=== PATIENT | female | born 1985 | race Caucasian/White ===

== ENCOUNTER 2016-05-10 20:51 | Emergency (ER) | payer SELFPAY ==
[~2016-05-10] VITALS: Ht 157.5 cm; Wt 49.5 kg
[~2016-05-10 20:51] MED LIST: IBUP-1542 PO; LIDO20SO19 MM; METO10TA92 PO
[2016-05-10 21:10] VITALS: Ht 157.5 cm; Wt 49.5 kg
== END 2016-05-10 21:31 | disposition left against medical advice (07) ==
LOC: FTE 20:51
DX: Z53.21 Procedure and treatment not carried out due to patient leaving prior to being seen by health care provider (principal)

== ENCOUNTER 2016-09-17 11:50 | Inpatient (IN) | payer OTHER ==
[~2016-09-17] VITALS: Ht 157.5 cm; Wt 59.4 kg
[2016-09-17 12:05] VITALS: BP 110/59; PULSE 96; RESP 16; Ht 157.5 cm; Wt 59.4 kg
[2016-09-17 12:31] LABS: URINE BLOOD (Dip) POC Negative (NEGATIVE)
[2016-09-17] MEDS ORDERED: ONDANSETRON 4 MG INJ IV PRN (13:00)
[2016-09-17] MEDS ORDERED: AL HYDROX/MG HYDROX/SIMETH 30 ML CUP PO PRN (13:00)
[2016-09-17] MEDS: LACTATED RINGER'S 1,000 ML IV SCH ×2 (13:11→17:55)
[2016-09-17 13:48] LABS: ADD SCAN DIFF NO
[2016-09-17] MEDS ORDERED: FOLI-49 PO (13:52)
[2016-09-17] MEDS ORDERED: PRENAT PO (13:52)
[2016-09-17 13:57] LABS: BASOPHILS % 0.2 % (0.0-2.0); EOSINOPHILS # 0.1 10^3/ul (0.0-0.5); HEMATOCRIT 35.4 % (37.0-47.0); HEMOGLOBIN 11.7 g/dl (12.0-16.0); LYMPHOCYTES # 1.3 10^3/ul (0.8-2.9); LYMPHOCYTES % 13.6 % (15.0-51.0); MEAN CORPUSCULAR HEMOGLOBIN 30.8 pg (29.0-33.0); MEAN CORPUSCULAR HGB CONC 33.1 g/dl (32.0-37.0); MEAN CORPUSCULAR VOLUME 93.2 fl (82.0-101.0); MEAN PLATELET VOLUME 10.7 fl (7.4-10.4); MONOCYTE # 0.8 10^3/ul (0.3-0.9); MONOCYTES % 7.9 % (0.0-11.0); NEUTROPHIL # 7.3 10^3/ul (1.6-7.5); NEUTROPHILS % 76.2 % (39.0-77.0); PLATELET COUNT 211 10^3/UL (140-415); WHITE BLOOD COUNT 9.6 10^3/ul (4.8-10.8)
[2016-09-17 13:57] LABS: ADD UMIC NO; URINE BILIRUBIN (Dip) NEGATIVE (NEGATIVE); URINE BLOOD (Dip) NEGATIVE (NEGATIVE); URINE COLOR LT. YELLOW (YELLOW); URINE GLUCOSE (Dip) NEGATIVE (NEGATIVE); URINE KETONES (Dip) NEGATIVE (NEGATIVE); URINE LEUKOCYTE ESTERASE (Dip) NEGATIVE (NEGATIVE); URINE NITRITE (Dip) NEGATIVE (NEGATIVE); URINE TOTAL PROTEIN (Dip) NEGATIVE (NEGATIVE); URINE UROBILINOGEN (Dip) 0.2 E.U./dL (0.1-1.0)
[2016-09-17 14:13] LABS: INR 1.01; PARTIAL THROMBOPLASTIN TIME 26.3 Sec (25.0-35.0); PROTIME 13.3 Sec (12.2-14.2)
[2016-09-17 14:16] LABS: ALBUMIN 3.1 g/dl (3.3-4.9); ALBUMIN/GLOBULIN RATIO 0.96; BILIRUBIN,INDIRECT 0.6 mg/dl (0-1.1); BILIRUBIN,TOTAL 0.6 mg/dl (0.2-1.3); CALCIUM 8.3 mg/dl (8.4-10.2); CREATININE 0.38 mg/dl (0.44-1.00); PHOSPHORUS 3.9 mg/dl (2.5-4.9); POTASSIUM 3.8 mmol/L (3.5-5.1); TOTAL PROTEIN 6.3 g/dl (6.1-8.1)
[2016-09-17 14:17] LABS: BARBITURATES Negative (NEGATIVE); BENZODIAZEPINES Negative (NEGATIVE)
[2016-09-17 14:35] LABS: CANNABINOIDS Negative (NEGATIVE); COCAINE Negative (NEGATIVE); OPIATES Negative (NEGATIVE)
[2016-09-17] MEDS: ACETAMINOPHEN 325 MG TAB PO PRN (14:36)
[2016-09-17] MEDS: BETAMET NA PHOS/AC(6 MG/ML) 5ML INJ IM SCH (14:36)
--- NOTE | 2016-09-17 14:50 | RADRPT ---
PROCEDURE: US OB. CLINICAL INDICATION: induced hypertension, labor TECHNIQUE: Multiple sonographic images of the pelvis were obtained. The images were reviewed on a PACS workstation. COMPARISON: No prior studies are available for comparison. FINDINGS: The cervix is closed with a length of 4.33 cm. There is a single viable intrauterine gestation. Cardiac activity is present with 156 beats per min [place]. There is a vertex presentation. Measurements were made in order to determine age. The results are as follows: BPD = 7.65 cm HC = 28.11 cm AC = 26.03 cm FL = 5.7 cm. Estimated gestational age of approximately 30 weeks 3 days. The estimated date of delivery is November 23, 2016. The EFW = 1527 g plus or minus 229 g or 3 pounds 6 ounces. This is in the 29.3 percentile . No anatomic abnormality is visualized. The placenta is right lateral, grade II to III. There is no evidence for an abruption or placenta pr evia. There is a normal amount of amniotic fluid with an NAFISA = 9.81 cm in 4 quadrants. The biophysical profile score is 8/8. There are no adnexal masses. IMPRESSION: Single viable intrauterine gestation of approximately 30 weeks 3 days. The estimated date of delive ry is November 23, 2016. No acute abnormality visualized. The estimated weight is in the 29.3 p ercentile . RPTAT: EE .Lupis Miller MD, MD Date Time Electronically viewed and signed by .Lupis Miller MD, MD on 09/17/2016 14:49 .F/
[2016-09-17 14:52] LABS: FIBRIN SPLIT PRODUCT <10 ug/ml (<10)
--- NOTE | 2016-09-17 14:53 | RADRPT ---
PROCEDURE: US OB. CLINICAL INDICATION: labor, induced hypertension TECHNIQUE: Transabdominal OB views of the pelvis are available for review. COMPARISON: Complete OB ultrasound from the same day FINDINGS: Within the uterus, there is a single, live intrauterine . The presentation is cephalic. Th e heart rate is 156 beats per minute. The amniotic fluid index in four quadrants is 9.81 cm. The placenta is noted to be right lateral and grade 2-3. There are no findings of abruption or previ a. The biophysical profile score is 8/8. IMPRESSION: 1. Single live intrauterine with an amniotic fluid index of 9.81 cm. The biophysical pro file score is 8/8. 2. The placenta is right lateral and grade 2-3. There are no findings of abruption or previa. RPTAT: QQ .Lupis Miller MD, Date Time Electronically viewed and signed by .Lupis Miller MD, on 09/17/2016 14:52 .F/
--- NOTE | 2016-09-17 18:05 | QN ---
Documentation Comment iup 30 weeks here for repeat BMS course no complaints vss exam wnl a/p iup 30 weeks false labor [facility] DAISHA DE JESUS MD September 17, 2016 18:05
[2016-09-18] MEDS: LACTATED RINGER'S 1,000 ML IV SCH ×3 (01:42→17:29)
[2016-09-18] MEDS ORDERED: DOCUSATE SODIUM 100 MG CAP PO SCH (09:00)
[2016-09-18] MEDS ORDERED: MULTIVIT/MIN/FOLATE/IRON/PREN TAB PO SCH (09:00)
[2016-09-18] MEDS: ACETAMINOPHEN 325 MG TAB PO PRN (09:01)
--- NOTE | 2016-09-18 12:41 | PN ---
Date/Time of Note Date/Time of Note DATE: 09/18/16 TIME: 12:33 OB Subjective Subjective Subjective 30 weeks 4/7 days history of previous admitted to the hospital for lower abdominal pain, today he says her pain is much better and she has only slight discomfort. Since she has a history of PIH in the past pregnancies 24 hours urine collection for protein requested result not available yet patient's blood pressure has been within normal when I saw her blood pressure was 105/ 70 no complaint of headache blurry vision or epigastric pain plan pending 24 hours urine collection for protein. SELVIN HINES MD September 18, 2016 12:41
[2016-09-18] MEDS: BETAMET NA PHOS/AC(6 MG/ML) 5ML INJ IM SCH (13:09)
[2016-09-18 15:31] LABS: SCRET 0.38 mg/dl (0.44-1.00)
--- NOTE | 2016-09-18 18:01 | DS ---
Date/Time of Note Date/Time of Note DATE: 09/18/16 TIME: 17:59 Obstetrical Discharge Record Final Diagnosis Final Diagnosis: not delivered Other Final Diagnosis 30+4 weeks of gestation rule out PIH Status post betamethasone 2 doses Blood pressure within normal limits 24 hour urine protein collection within normal limits Patient instructed to follow-up with her clinic in 2-3 days Condition on Discharge Physical Assessment Last Vitals: Blood pressure within normal limits Voiding: Yes Bowel Movement: Yes Calf Tenderness: No Patient Condition: Good ALMITA SHERIFF MD September 18, 2016 18:01
== END 2016-09-18 18:20 | disposition home or self-care (01) | DRG 778 ==
LOC: OBT 11:50 → L-D 11:51 → OBT 13:00 → OBG 13:00
PROVIDERS: ADMIT Obstetrics & Gynecology; ATTEND Obstetrics & Gynecology
DX: O60.03 Preterm labor without delivery, third trimester (principal); O34.219 Maternal care for unspecified type scar from previous cesarean delivery; O13.3 Gestational [pregnancy-induced] hypertension without significant proteinuria, third trimester; Z3A.30 30 weeks gestation of pregnancy
CPT/HCPCS: 36415; 76815; 76817; 76818; 80053; 80069; 80076; 80307; 81003; 82575; 83615; 84156; 84560; 85025; 85362; 85384; 85610; 85730; 86592; 86850; 86900; 86901; 87086; 96360; 96372; G0463; J0702; J7120

== ENCOUNTER 2016-10-04 14:18 | Emergency (ER) | payer OTHER ==
[~2016-10-04] VITALS: Ht 160 cm; Wt 59.5 kg
[~2016-10-04 14:18] MED LIST changes: +FOLI-49 PO; -IBUP-1542 PO; -LIDO20SO19 MM; -METO10TA92 PO; +PRENAT PO
[2016-10-04 14:33] VITALS: Ht 160 cm; Wt 59.5 kg
[2016-10-04] MEDS ORDERED: DEBROX RIGHT EAR (14:37)
--- NOTE | 2016-10-04 14:44 | ERD ---
ER Documentation Chief Complaint Date/Time DATE: 10/04/16 TIME: 14:42 Chief Complaint right ear pain x 1 week HPI 31-year-old female comes in with right ear muscle weakness, pressure-like pain for the past 5 days. Patient states that it is localized to the inner right ear , she tried cleaning her ear but was not able to get anything out. She denies any discharge, drainage, fevers or chills. No recent swimming. She states that she is currently 38 2 weeks , denies pelvic pain, vaginal bleeding , dizziness, chest pain or shortness of breath. Patient reports positive movement. ROS All systems reviewed and are negative except as per history of present illness. Medications Home Meds Active Scripts Carbamide Peroxide* (Debrox*) 6.5% -15 Ml Drops, 10 DROP RIGHT EAR BID, #1 EA Prov:LESLEY MARTINEZ PA-C 10/04/16 Reported Medications Folic Acid* (Folic Acid*) 1 Mg Tablet, 1 MG PO DAILY, TAB 09/17/16 Multivit/Min/Fol Ac/Iron/Pren* ( S*) 1 Tab Tab, 1 TAB PO DAILY, TAB 09/17/16 Allergies Allergies: Coded Allergies: No Known Allergy (Unverified , 09/17/16) PMhx/Soc Hx Alcohol Use: No Hx Substance Use: No Hx Tobacco Use: No Physical Exam Vitals Vital Signs Date Time Temp Pulse Resp B/P Pulse Ox O2 Delivery O2 Flow Rate FiO2 10/04/16 14:33 98.9 96 18 104/74 97 Physical Exam General: Well-developed, well-nourished. The patient appears in no acute distress. HEENT: Head is normocephalic, atraumatic. No scleral icterus. Right ear has cerumen impaction, no pain with manipulation of the ear. Oropharynx is clear. Left ear normal. Neck: Supple. Nontender. Lungs: Clear to auscultation. Normal air movement. Heart: Regular rate and rhythm. S1 and S2 are normal. No murmurs, gallops, or rubs. Abdomen: Nondistended. Appropriate fundal height. Extremities: No clubbing or cyanosis. Moving extremities x 4. No weakness. Neurologic: Alert and oriented 3. No focal deficits. Normal speech and gait. Skin: Normal turgor. No rash or lesions. Procedures/MDM 31-year-old female comes in with impaction of cerumen of the right ear. No evidence of orbital cellulitis, facial cellulitis, mastoiditis, otitis externa. Patient is currently , does not have any obstetric complaints, including pelvic pain or vaginal bleeding. Vitals were reviewed, stable will be discharged home with eardrops. Departure Diagnosis: Primary Impression: Impacted cerumen of right ear Condition: Good Patient Instructions: Cerumen Impaction, Home Care Additional Instructions: Call your primary care doctor TOMORROW for an appointment during the next 1-2 days.See the doctor sooner or return here if your condition worsens before your appointment time. LESLEY MARTINEZ PA-C Oct 04, 2016 14:44
== END 2016-10-04 17:07 | disposition home or self-care (01) ==
LOC: E/R 14:18
DX: O99.89 Other specified diseases and conditions complicating pregnancy, childbirth and the puerperium (principal); H61.21 Impacted cerumen, right ear; H92.01 Otalgia, right ear; Z3A.38 38 weeks gestation of pregnancy
CPT/HCPCS: 99283

== ENCOUNTER 2016-11-17 04:56 | Inpatient (IN) | payer OTHER ==
[~2016-11-17] VITALS: Ht 154.9 cm; Wt 64.9 kg
[~2016-11-17 04:56] MED LIST changes: +DEBROX RIGHT EAR
[2016-11-17 05:21] VITALS: Ht 154.9 cm; Wt 64.9 kg
[2016-11-17] MEDS ORDERED: LACTATED RINGER'S 1,000 ML IV SCH (05:23)
[2016-11-17] MEDS ORDERED: CARBOPROST 250 MCG INJ IM PRN ×2 (05:30→12:00)
[2016-11-17] MEDS ORDERED: METHYLERGONOVINE 0.2 MG INJ IM PRN ×2 (05:30→12:00)
[2016-11-17] MEDS ORDERED: MISOPROSTOL 200 MCG TAB PR PRN ×2 (05:30→12:00)
[2016-11-17] MEDS ORDERED: CEFAZOLIN 2 GM/50 ML (PMX) 50 ML IV SCH (05:30)
[2016-11-17] MEDS ORDERED: OXYTOCIN 30 UNITS/LR 500 ML IV SCH (05:30)
[2016-11-17] MEDS ORDERED: OXYTOCIN 30 UNITS/LR 500 ML IV PRN ×2 (05:30→12:00)
[2016-11-17 06:21] LABS: BASOPHILS % 0.2 % (0.0-2.0); EOSINOPHILS # 0.1 10^3/ul (0.0-0.5); HEMATOCRIT 36.1 % (37.0-47.0); HEMOGLOBIN 12.4 g/dl (12.0-16.0); LYMPHOCYTES # 2.5 10^3/ul (0.8-2.9); LYMPHOCYTES % 25.7 % (15.0-51.0); MEAN CORPUSCULAR HEMOGLOBIN 30.5 pg (29.0-33.0); MEAN CORPUSCULAR HGB CONC 34.3 g/dl (32.0-37.0); MEAN CORPUSCULAR VOLUME 88.7 fl (82.0-101.0); MONOCYTE # 0.7 10^3/ul (0.3-0.9); MONOCYTES % 7.6 % (0.0-11.0); NEUTROPHIL # 6.2 10^3/ul (1.6-7.5); NEUTROPHILS % 65.2 % (39.0-77.0); PLATELET COUNT 198 10^3/UL (140-415); RED BLOOD COUNT 4.07 10^6/ul (4.20-5.40); RED CELL DISTRIBUTION WIDTH 12.4 % (11.5-14.5); WHITE BLOOD COUNT 9.6 10^3/ul (4.8-10.8)
[2016-11-17 06:43] LABS: INR 0.97; PROTIME 12.9 Sec (12.2-14.2)
[2016-11-17 06:44] LABS: PARTIAL THROMBOPLASTIN TIME 27.2 Sec (25.0-35.0)
[2016-11-17] MEDS ORDERED: PHENYLephrine (100 MCG/ML) 5ML SYG ONE (07:40)
[2016-11-17] MEDS ORDERED: EPHEDrine SULFATE 50 MG/5 ML SYG ONE (07:40)
[2016-11-17] MEDS ORDERED: ONDANSETRON 4 MG INJ ONE (07:40)
[2016-11-17] MEDS ORDERED: DEXAMETHASONE 4 MG/ML 1 ML INJ ONE (07:40)
[2016-11-17] MEDS ORDERED: morphine SULFATE/PF (10 MG/10 ML) INJ ONE (07:40)
[2016-11-17] MEDS ORDERED: FENTAnyl 50 MCG/ML VIAL ONE (07:40)
[2016-11-17] MEDS ORDERED: NALOXONE (0.4 MG/ML) INJ IV PRN (09:00)
[2016-11-17] MEDS ORDERED: ONDANSETRON 4 MG INJ IV PRN (09:00)
[2016-11-17] MEDS ORDERED: HYDROmorphONE 1 MG/ML SYG IV PRN ×2 (09:00)
[2016-11-17] MEDS ORDERED: DIPHENHYDRAMINE 50 MG INJ IV PRN (09:00)
[2016-11-17] MEDS ORDERED: ZOLPIDEM 5 MG TAB PO PRN (09:00)
[2016-11-17] MEDS ORDERED: NALBUPHINE HCL (10 MG/1 ML) INJ IV PRN (09:00)
--- NOTE | 2016-11-17 09:23 | HP ---
Date/Time of Note Date/Time of Note DATE: 11/17/16 TIME: 09:14 OB - History Hx of Present Free Text/Dictation 30 years old female PC 1 EDC November 23, 2016 history of previous C- section admitted to 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12 history of 1 previous with section no other surgery or hospital admission according to her Allergies denies allergy to any known Social habit denies a smoking or drinking Review of system within normal Physical examination 5 feet 1 143 pound Temperature 98.1 pulse 72 respiration 18 blood pressure 128/88 Head ears nose and throat negative Neck supple no thyromegaly Lungs clear to P&A Heart normal sinus rhythm no murmur Breasts no abnormal palpable mass no nipple retraction or discharge no axillary adenopathy no supraclavicular adenopathy, Abdomen fundal height 36 cm from symphysis pubis scar of the previous heart rate category 1 Pelvic examination deferred Extremities no edema no varicosities Impression Intrauterine at 39 weeks gestation history of previous patient undergoing a repeat has been counseled regarding complication of the surgery including but not limited bowel bladder injury wound infection and hematoma and she is willing to go ahead with this procedure Estimated Due Date: Nov 23, 2016 : 2 Para: 1 Care: Limited Care Ultrasounds: Normal mid trimester US Obstetrical Complications: None Past Family/Social History * Past Medical, Surgical, Family and Obstetric Histories reviewed from chart. Rubella: immune RPR/VDRL: Negative GBS Status: Negative HBsAG: Negative OB Admission Exam Physical Exam Heart: Rhythm Normal Lungs: Clear, Equal Abdomen: WNL Reflexes: Normal Cervical Dilatation: None Accelerations: Accelerations Present Decelerations: No Decelerations Varibility: Moderate Contractions on Admission: >10 Minutes Apart Intensity: Mild Last 72 hours Lab Results CBC & BMP 11/17/16 05:50 SELVIN HINES MD Nov 17, 2016 09:23
--- NOTE | 2016-11-17 09:32 | OPR ---
Operative Report Planned Procedure Free Text/Dictation 39 weeks history of previous Procedure date Nov 17, 2016 Procedure(s) Repeat section Performed by: SELVIN HINES MD Assisting provider: DAISHA DE JESUS MD Anesthesiologist: KIRIT COLEMAN DO Pre-procedure diagnosis 39 weeks history of previous Anesthesia Type: spinal Procedure Description Under satisfactory spinal anesthesia, the patient was prepped and draped and placed in a supine position, tilted to the left. Pfannenstiel incision was made , carried through the subcutaneous tissue old scar was removed. Bleeders brought under control with electrocautery. Fascia incised to the length of the incision. Rectus muscles from the fascia, divided midline. Peritoneum exposed, entered through a transverse incision. Exploration of abdomen revealed gravid uterus normal-appearing tubes and ovaries. Bladder flap was developed. Transverse incision was made in the lower segment of the uterus. Amniotic sac ruptured. [Clear] amniotic fluid noted. Light baby girl was delivered from unengaged vertex [] Nasal oropharyngeal suction was performed. baby handed to the team for immediate attention. Patient received 20 units of Pitocin placenta was delivered manually intact. Uterine cavity was cleaned with wet sponge and drainage established. Uterus closed in 2 layers using [ Monocryl #1] in continuous fashion. Peritoneal cavity irrigated with warm saline. Sponge, needle and instrument count reported to be correct. Abdominal peritoneum closed with 2-0 chromic catgut [] continuously. Rectus muscle approximated with [interrupted 2-0 chromic catgut]. Fascia closed with #1 PDS [] , cutaneous tissue approximated with 2 interrupted 2-0 chromic catgut , skin closed with albina. Estimated blood loss [600]mL. Urine bag contained 200 []mL of clear urine patient tolerated procedure well transferred to recovery room in good condition Post-Procedure Findings: Live Baby girl [], Apgars [8] and [9], Complications: None Pt Condition post procedure: stable Disposition: other () Physician Certification I, the undersigned physician, hereby certify that I have discussed the procedure described in this consent form with this patient (or the patient's legal cash posting representative), including: * The risk and benefits of the procedure; * Any adverse reactions that may reasonably be expected to occur; * Any alternative efficacious methods of treatment which may be medically viable ; * The potential problems that may occur during recuperation; * Potential for blood transfusion and associated risks/benefits; and * Any research or economic interest I may have regarding this treatment. I further certify that the patient/legally responsible person was encouraged to ask question and that all questions were answered. SELVIN HINES MD Nov 17, 2016 09:32
[2016-11-17] MEDS: KETOROLAC 30 MG INJ IV PRN ×2 (10:07→16:29)
[2016-11-17 11:20] VITALS: BP 114/68; PULSE 70; RESP 19
[2016-11-17 12:00] VITALS: BP 133/76; PULSE 67; RESP 18
[2016-11-17] MEDS ORDERED: LANOLIN 7 GM TUBE TOP PRN (12:00)
[2016-11-17] MEDS ORDERED: ACETAMINOPHEN/CODEINE #3 TAB PO PRN ×2 (12:00)
[2016-11-17] MEDS ORDERED: CEFAZOLIN 1 GM/50 ML (PMX) 50 ML IVPB SCH (12:00)
[2016-11-17] MEDS: IBUPROFEN 600 MG TAB PO SCH ×2 (12:00→18:00)
[2016-11-17] MEDS ORDERED: OXYCODONE/ACETAMINOPHEN (5/325) TAB PO PRN (12:00)
[2016-11-17] MEDS: OXYTOCIN 30 UNITS/LR 500 ML IV SCH ×3 (15:11→20:06)
[2016-11-17 16:30] VITALS: BP 119/68; PULSE 65; RESP 19
[2016-11-17 19:35] VITALS: BP 119/79; PULSE 78; RESP 19
[2016-11-17] MEDS: SENNA/DOCUSATE NA (8.6MG/50MG) TAB PO SCH (20:06)
[2016-11-18 00:20] VITALS: BP 117/69; PULSE 67; RESP 19
[2016-11-18] MEDS: OXYTOCIN 30 UNITS/LR 500 ML IV SCH ×4 (00:55→11:47)
[2016-11-18] MEDS: LACTATED RINGER'S 1,000 ML IV SCH ×2 (00:55→08:10)
[2016-11-18] MEDS: KETOROLAC 30 MG INJ IV PRN ×2 (03:17→08:55)
[2016-11-18 04:02] VITALS: BP 119/72; PULSE 72; RESP 18
[2016-11-18] MEDS: IBUPROFEN 600 MG TAB PO SCH ×3 (06:00→17:54)
[2016-11-18 07:16] LABS: BASOPHILS % 0.2 % (0.0-2.0); EOSINOPHILS % 0.2 % (0.0-7.0); HEMATOCRIT 29.6 % (37.0-47.0); HEMOGLOBIN 10.1 g/dl (12.0-16.0); LYMPHOCYTES # 2.5 10^3/ul (0.8-2.9); LYMPHOCYTES % 19.2 % (15.0-51.0); MEAN CORPUSCULAR HEMOGLOBIN 30.2 pg (29.0-33.0); MEAN CORPUSCULAR HGB CONC 34.1 g/dl (32.0-37.0); MEAN CORPUSCULAR VOLUME 88.6 fl (82.0-101.0); MONOCYTES % 7.5 % (0.0-11.0); NEUTROPHIL # 9.2 10^3/ul (1.6-7.5); NEUTROPHILS % 72.3 % (39.0-77.0); PLATELET COUNT 186 10^3/UL (140-415); RED BLOOD COUNT 3.34 10^6/ul (4.20-5.40); RED CELL DISTRIBUTION WIDTH 12.4 % (11.5-14.5); WHITE BLOOD COUNT 12.8 10^3/ul (4.8-10.8)
[2016-11-18 08:10] VITALS: BP 125/69; PULSE 67; RESP 16
[2016-11-18] MEDS: SENNA/DOCUSATE NA (8.6MG/50MG) TAB PO SCH ×2 (08:54→21:23)
--- NOTE | 2016-11-18 10:13 | PN ---
Date/Time of Note Date/Time of Note DATE: 11/18/16 TIME: 10:12 OB Subjective Subjective Subjective Repeat day 1 Afebrile Vital signs are stable Abdomen soft bowel sounds present Lochia moderate Incision dry Extremities negative, ambulation encouraged SELVIN HINES MD Nov 18, 2016 10:13
[2016-11-18] MEDS: OXYCODONE/ACETAMINOPHEN (5/325) TAB PO PRN ×2 (13:32→17:56)
[2016-11-18 16:00] VITALS: BP 120/69; PULSE 70; RESP 18
[2016-11-18 20:05] VITALS: BP 132/72; PULSE 68; RESP 18
[2016-11-19] MEDS: IBUPROFEN 600 MG TAB PO SCH ×5 (00:26→23:19)
[2016-11-19 04:00] VITALS: BP 130/70; PULSE 78; RESP 18
[2016-11-19 08:15] VITALS: BP 134/93; PULSE 86; RESP 19
[2016-11-19] MEDS: SENNA/DOCUSATE NA (8.6MG/50MG) TAB PO SCH ×2 (08:27→21:53)
[2016-11-19] MEDS: OXYCODONE/ACETAMINOPHEN (5/325) TAB PO PRN ×2 (08:27→16:54)
--- NOTE | 2016-11-19 08:42 | PN ---
Date/Time of Note Date/Time of Note DATE: 11/19/16 TIME: 08:41 OB Subjective Subjective Subjective Post day 2 Afebrile Vital signs are stable Abdomen soft bowel sounds present no bowel movement extremities negative Enema recommended SELVIN HINES MD Nov 19, 2016 08:41
[2016-11-19] MEDS ORDERED: NA PHOSPHATE/BIPHOS 133 ML ENEMA PR ONE (09:00)
[2016-11-19 16:00] VITALS: BP 124/90; PULSE 68; RESP 19
[2016-11-19 20:00] VITALS: BP 129/96; PULSE 78; RESP 18
[2016-11-20] MEDS: OXYCODONE/ACETAMINOPHEN (5/325) TAB PO PRN ×2 (00:08→08:44)
[2016-11-20 04:02] VITALS: BP 127/64; PULSE 76; RESP 20
[2016-11-20] MEDS: IBUPROFEN 600 MG TAB PO SCH ×2 (05:22→13:22)
[2016-11-20 07:30] VITALS: BP 127/95; PULSE 75; RESP 16
[2016-11-20] MEDS: SENNA/DOCUSATE NA (8.6MG/50MG) TAB PO SCH (08:44)
[2016-11-20] MEDS ORDERED: DIPHTH/TET/ACEL PERTUSS (ADULT) 0.5 ML VIAL IM* ONE (09:00)
--- NOTE | 2016-11-20 10:06 | PD.PPDC ---
POTTERY DECORATOR Discharge Instruction Condition Patient Condition: Good Diet Diet: Resume Regular Diet Activity/Restrictions Activity: Normal Activity May Shower Wound/Drain Care Instructions Wound/Drain Care Instructions: Remove Steri Strips in 1 week Follow-up Follow-up with Physician: 4, Day/Days Provider Information: Appointment clinic in 4 days to discontinue albina patient received instructions for home care of wound Return to clinic for SKI TOPPER Instructions: Fever greater than 101 Chills Worsening abdominal pain Excessive Vaginal Bleeding More than 2 pads per hour Unable to tolerate diet OB Instructions: Breast Tenderness Depression Blurried Vision Headache Surgical Instructions: Incisional Drainage Incisional Redness SELVIN HINES MD Nov 20, 2016 10:06
--- NOTE | 2016-11-20 10:09 | DS ---
Date/Time of Note Date/Time of Note DATE: 11/20/16 TIME: 10:08 Discharge Summary Admission/Discharge Info Admit Date/Time Nov 17, 2016 at 04:56 Discharge Date/Time November 20, 2016 at 10 AM Discharge Diagnosis Date 3 post repeat Patient Condition: Good Procedures Repeat Hx of Present Illness 39 weeks history of previous Hospital Course Satisfactory recovery Home Meds Active Scripts Carbamide Peroxide* (Debrox*) 6.5% -15 Ml Drops, 10 DROP RIGHT EAR BID, #1 EA Prov:LESLEY MARTINEZ PASamantha 10/04/16 Reported Medications Folic Acid* (Folic Acid*) 1 Mg Tablet, 1 MG PO DAILY, TAB 09/17/16 Multivit/Min/Fol Ac/Iron/Pren* ( S*) 1 Tab Tab, 1 TAB PO DAILY, TAB 09/17/16 Follow-up Plan Post instructions given advised to make appointment in 4 days to discontinue albina Primary Care Provider William Golden Time spent on discharge: < 30 minutes SELVIN HINES MD Nov 20, 2016 10:09
== END 2016-11-20 14:10 | disposition home or self-care (01) | DRG 766 ==
LOC: L-D 04:56 → PP1 11:25
PROVIDERS: ADMIT Obstetrics & Gynecology; ATTEND Obstetrics & Gynecology
PROC: 3E033VJ Introduction of Other Hormone into Peripheral Vein, Percutaneous Approach (ICD-10-PCS; 2016-11-17)
PROC: 10D00Z1 Extraction of Products of Conception, Low, Open Approach (ICD-10-PCS; principal; 2016-11-17 07:30)
DX: O34.211 Maternal care for low transverse scar from previous cesarean delivery (principal); Z37.0 Single live birth; Z3A.39 39 weeks gestation of pregnancy
CPT/HCPCS: 85025; 85610; 85730; 86592; 86850; 86900; 86901; 87340; 90715; 94760; 99464; J0690; J1100; J1885; J2274; J2370; J2405; J2590; J3010; J7120

== ENCOUNTER 2017-03-22 12:57 | Emergency (ER) | payer OTHER ==
[~2017-03-22] VITALS: Wt 57.7 kg
[~2017-03-22 12:57] MED LIST changes: +CARB-155 RIGHT EAR; -DEBROX RIGHT EAR
[2017-03-22] MEDS ORDERED: BACITUD TOP (14:41)
[2017-03-22] MEDS ORDERED: CLOT30CR24 TOP (14:41)
[2017-03-22] MEDS ORDERED: CEPH-443 PO (14:41)
[2017-03-22] MEDS ORDERED: ACET500C5 PO (14:42)
--- NOTE | 2017-03-22 23:48 | ERD ---
ER Documentation Chief Complaint Chief Complaint LEFT BREAST PAIN, ONSET SEVERAL WEEKS NOW, PT IS HPI 31-year-old female patient with no significant past medical history presents to the ED complaining of a gradual onset of left breast pain that occurred a few weeks ago while breast-feeding. Reports that she has not been breast-feeding with her left breast due to the pain and it feels engorged. Reports that she has been breast-feeding her 4-month-old and she started to get cuts on her nipple. Denies any fever, chills, nausea, vomiting, chest pain, shortness of breath, shortness of breath, rashes, increased redness or warmth of skin. ROS All systems reviewed and are negative except as per history of present illness. Medications Home Meds Active Scripts Acetaminophen* (Tylophen*) 500 Mg Capsule, 1 CAP PO Q6H Y for PAIN AND OR ELEVATED TEMP, #20 CAP Prov:HEMANT BARTH PA-C 03/22/17 Clotrimazole* (Clotrimazole* AF) 1% - 30 Gm Cream.gm., 1 APPLIC TOP BID for 7 Days, TUB Prov:HEMANT BARTH PA-C 03/22/17 Bacitracin* (Bacitracin Oint (UD)*) 1 Applic Oint, 1 APPLIC TOP ONCE, #14 PKT APPLY TO Prov:HEMANT BARTH PA-C 03/22/17 Cephalexin* (Keflex*) 500 Mg Capsule, 500 MG PO QID for 7 Days, CAP Prov:HEMANT BARTH PA-C 03/22/17 Carbamide Peroxide* (Debrox*) 6.5% -15 Ml Drops, 10 DROP RIGHT EAR BID, #1 EA Prov:LESLEY MARTINEZ PA-C 10/04/16 Reported Medications Folic Acid* (Folic Acid*) 1 Mg Tablet, 1 MG PO DAILY, TAB 09/17/16 Multivit/Min/Fol Ac/Iron/Pren* ( S*) 1 Tab Tab, 1 TAB PO DAILY, TAB 09/17/16 Allergies Allergies: Coded Allergies: No Known Allergy (Unverified , 03/22/17) PMhx/Soc Medical and Surgical Hx: pt denies Medical Hx History of Surgery: Yes () Hx Alcohol Use: No Hx Substance Use: No Hx Tobacco Use: No Smoking Status: Never smoker Physical Exam Vitals Vital Signs Date Time Temp Pulse Resp B/P Pulse Ox O2 Delivery O2 Flow Rate FiO2 03/22/17 12:58 99.0 88 18 120/77 99 Physical Exam Const: [id number], well-nourished. In no acute distress. Head: Atraumatic, normocephalic Eyes: Normal Conjunctiva without injection. No purulent discharge. PERRL. EOMI ENT: Normal external ear. Ear canal without erythema. Tympanic membrane pearly gonzalez without effusion or bulging. Nasal canal clear with normal turbinates. Moist oropharynx without tonsillar exudates. Non-erythematous pharynx. Uvula midline. No drooling. No trismus. Neck: Full range of motion. No meningismus. No cervical lymphadenopathy. Resp: Clear to auscultation bilaterally. No wheezing, rhonchi, rales, or crackles. No accessory muscle use. No retractions. Cardio: Regular rate and rhythm. No murmurs, rubs or gallops. Breast: Engorged left breast - firm. No fluctuance or induration. No erythema. No warmth to touch. Fissures noted around the left areola. Normal external right breast with no fluctuance erythema, edema, warm to touch. No masses palpated bilaterally. Abd: Soft, non tender, non distended. Normal bowel sounds. No palpable masses. No rebound tenderness. No guarding. Skin: No petechiae or rashes Back: No midline tenderness. No CVA tenderness. Ext: No cyanosis, or edema. Neur: Awake and alert. Psych: Normal Mood and Affect Procedures/MDM This is a 31-year-old female patient with no significant past medical history who is currently breast-feeding her 4-month-old presents to the ED complaining of left breast pain and fissures noted on her areola. Patient is afebrile and nontoxic-appearing. Patient has normal vital signs. Patient will be given outpatient antibiotics, Keflex to cover for mastitis. She was also instructed to apply bacitracin ointment and clotrimazole for coverage of bacterial and fungal etiology. Strict instructions to use a breast pump instead of direct breast feeding. Strict instructions to avoid feeding with the left breast to avoid licking and eating ointment and cream. Low suspicion for fibroadenoma, cyst, fibrocystic changes, galactocele, fat necrosis, malignancy. Low suspicion for deep space infection, sepsis, cellulitis, or other emergent conditions. Discharge medications: Tylenol, Clotrimazole, Bacitracin, Keflex Follow up with primary care physician in 1-2 days. Instructed patient to return to the ED sooner for any worsening symptoms. Patient's questions were answered. Patient understood and agreed with discharge plan. Patient discharged stable. Departure Diagnosis: Primary Impression: Nipple fissure Additional Impressions: Engorged breasts Breast pain Condition: Stable Patient Instructions: Breast Anatomy, Breast Care After , Mastitis Referrals: [facility] YOU HAVE RECEIVED A MEDICAL SCREENING EXAM AND THE RESULTS INDICATE THAT YOU DO NOT HAVE A CONDITION THAT REQUIRES URGENT TREATMENT IN THE EMERGENCY DEPARTMENT. FURTHER EVALUATION AND TREATMENT OF YOUR CONDITION CAN WAIT UNTIL YOU ARE SEEN IN YOUR DOCTORS OFFICE WITHIN THE NEXT 1-2 DAYS. IT IS YOUR RESPONSIBILITY TO MAKE AN APPOINTMENT FOR FOLOW-UP CARE. IF YOU HAVE A PRIMARY DOCTOR --you should call your primary doctor and schedule an appointment IF YOU DO NOT HAVE A PRIMARY DOCTOR YOU CAN CALL OUR PHYSICIAN REFERRAL HOTLINE AT IF YOU CAN NOT AFFORD TO SEE A PHYSICIAN YOU CAN CHOSE FROM THE FOLLOWING [facility] [address] [facility]. [facility] [address] [facility]. [facility] [address] [facility]. [facility] [address] [facility]. [facility] [address] [facility]. [facility]. [address] [facility]. [facility] YOU HAVE RECEIVED A MEDICAL SCREENING EXAM AND THE RESULTS INDICATE THAT YOU DO NOT HAVE A CONDITION THAT REQUIRES URGENT TREATMENT IN THE EMERGENCY DEPARTMENT. FURTHER EVALUATION AND TREATMENT OF YOUR CONDITION CAN WAIT UNTIL YOU ARE SEEN IN YOUR DOCTORS OFFICE WITHIN THE NEXT 1-2 DAYS. IT IS YOUR RESPONSIBILITY TO MAKE AN APPOINTMENT FOR FOLOW-UP CARE. IF YOU HAVE A PRIMARY DOCTOR --you should call your primary doctor and schedule and appointment IF YOU DO NOT HAVE A PRIMARY DOCTOR YOU CAN CALL OUR PHYSICIAN REFERRAL HOTLINE AT . IF YOU CAN NOT AFFORD TO SEE A PHYSICIAN YOU CAN CHOSE FROM THE FOLLOWING [facility] INSTITUTIONS: [facility] [address] [place] [address] [facility] [address] [place] [address] [facility] [address] [place] [address] CARDING MACHINE OPERATOR [place] [address] [facility] [address] [place] [address] OFFICE FAX , [facility] [address] [place], [place] [id number] [facility] [address] [place] [address] [address] CASTEL[address], [facility] [address] [facility], [address], [facility] [address] [address] [facility] [address] [place] [address] [facility] [address] [place] [address] [address] [facility] [address] - SONNY [address]ABRESE [address], [facility] [address] [address], [facility] [address] [facility] [address], [facility] [address] [address] [facility] [address] [place], [place] [id number] [facility] Hours: 8:00 am - 5:00 pm Additional Instructions: Clotrimazole cream is to cover for fungal infection Bacitracin ointment is to cover bacterial infection Complete the course of Keflex (oral antibiotics) x 7 days Tylenol as needed for pain Warm compresses recommended for left engorged breast. Use breast pump while using the creams and antibiotics until fissures (cuts of skin) have resolved. Do not let baby lick/eat the cream/ointment of left breast while applied. Use breast pump to obtain breast milk temporarily until infection has resolved and when CARDING MACHINE OPERATOR states that you can resume breast feeding. Call your CARDING MACHINE OPERATOR TOMORROW for an appointment during the next 2-3 days.See the doctor sooner or return here if your condition worsens before your appointment time. Follow up in 2 days in your clinic for wound check. HEMANT BARTH PA-C Mar 22, 2017 23:48
== END 2017-03-22 15:08 | disposition home or self-care (01) ==
LOC: FTE 12:57
DX: N64.0 Fissure and fistula of nipple (principal); N62 Hypertrophy of breast
CPT/HCPCS: 99283